=== PATIENT | female | born 1955 | race Caucasian/White ===

== ENCOUNTER 2023-11-04 07:29 | Inpatient (IN) | payer MEDICARE, OTHER ==
[~2023-11-04] VITALS: Ht 162.6 cm; Wt 77.1 kg
[2023-11-04] MEDS ORDERED: FENTANYL PF 100MCG/2ML AMPUL ONE (10:58)
[2023-11-04] MEDS ORDERED: KETAMINE HCL (500MG/10ML) 50 MG/ML VIAL ONE (10:59)
[2023-11-04] MEDS ORDERED: FAMOTIDINE/PF INJ 20 MG/2 ML VIAL IV ONE (10:59)
[2023-11-04] MEDS ORDERED: OXYMETAZOLINE HCL NASAL SPRAY 30 ML BOTTLE NS ONE (11:02)
[2023-11-04] MEDS ORDERED: LIDOCAINE 2%-EPI 1:100,000 30 ML VIAL ONE (11:03)
[2023-11-04] MEDS ORDERED: dexaMETHasone SOD PHOSPHATE 2 ML ONE (11:03)
[2023-11-04] MEDS ORDERED: VANCOMYCIN 1 GM VIAL ONE (11:04)
[2023-11-04] MEDS ORDERED: LABETALOL HCL IV 100MG VIAL ONE (11:53)
[2023-11-04] MEDS ORDERED: ONDANSETRON HCL/PF - ER 4 MG/2 ML VIAL IVP PRN (15:30)
[2023-11-04] MEDS ORDERED: ONDANSETRON HCL/PF 4 MG/2 ML VIAL IVP PRN (15:30)
[2023-11-04] MEDS ORDERED: HYDROMORPHONE 1 MG/1 ML DISP.SYRIN IV PRN (15:30)
[2023-11-04] MEDS ORDERED: LOSA100T31 PO (15:56)
[2023-11-04] MEDS ORDERED: AMLO10TA4 PO (15:56)
[2023-11-04] MEDS: IV NS 0.9% 1,000 ML IV PRN (16:59)
[2023-11-04] MEDS: ACETAMINOPHEN 325 MG TABLET PO PRN (17:36)
[2023-11-04] MEDS ORDERED: MAGNESIUM HYDROXIDE 30 ML UDC PO PRN (19:00)
[2023-11-04] MEDS ORDERED: Z GUARD REMEDY 4 OZ OINT TP PRN (19:00)
[2023-11-04 20:00] VITALS: BP 120/74; TEMP 97.5; O2SAT 93
[2023-11-05 02:30] VITALS: O2SAT 99
[2023-11-05 07:26] LABS: HEMATOCRIT 36 % (33-45); HEMOGLOBIN 11.9 g/dL (11.5-14.8); LYMPHOCYTES # (AUTO) 0.9 K/uL (0.8-4.8); LYMPHOCYTES % (AUTO) 7.9 % (20.0-44.0); MEAN CORPUSCULAR HEMOGLOBIN 30 PG (26.0-33.0); MEAN CORPUSCULAR HGB CONC 33 g/dl (31.0-36.0); MEAN CORPUSCULAR VOLUME 90 fL (82-100); MONOCYTES # (AUTO) 0.6 K/uL (0.1-1.30); MONOCYTES % (AUTO) 5.2 % (2.0-12.0); NEUTROPHILS # (AUTO) 9.3 K/uL (1.8-8.9); NEUTROPHILS % (AUTO) 86.9 % (43.0-81.0); PLATELET COUNT (AUTO) 238 K/uL (150-450); RED BLOOD CELL COUNT(AUTO) 3.95 MIL/uL (4.0-5.2); RED CELL DISTRIBUTION WIDTH 13.3 % (11.5-15.0); WHITE BLOOD COUNT (AUTO) 10.8 K/uL (4.3-11.0)
[2023-11-05 07:54] LABS: CALCIUM, SERUM 9.6 mg/dL (8.5-10.1); CREATININE 0.5 mg/dL (0.6-1.3); MAGNESIUM 2.2 mg/dL (1.8-2.4); PHOSPHORUS 3.4 mg/dL (2.5-4.9); POTASSIUM 3.7 mmol/L (3.5-5.1)
[2023-11-05 08:00] VITALS: BP 120/75; TEMP 99.5; O2SAT 95
[2023-11-05 08:07] VITALS: O2SAT 98
[2023-11-05] MEDS: AMLODIPINE BESYLATE 10 MG TABLET PO SCH (08:34)
[2023-11-05 08:36] VITALS: BP 120/75
[2023-11-05] MEDS: LOSARTAN POTASSIUM 50 MG TABLET PO SCH (08:36)
== END 2023-11-05 16:15 | disposition home or self-care (01) | DRG 516 ==
LOC: DS 07:29 → MED 14:53
PROVIDERS: ADMIT Nurse Practitioner Family; ATTEND Nurse Practitioner Family
PROC: 0NPW0JZ Removal of Synthetic Substitute from Facial Bone, Open Approach (ICD-10-PCS; principal; 2023-11-04)
PROC: 0NBT0ZZ Excision of Right Mandible, Open Approach (ICD-10-PCS; 2023-11-04)
PROC: 0NST0ZZ Reposition Right Mandible, Open Approach (ICD-10-PCS; 2023-11-04)
PROC: 0NUT07Z Supplement Right Mandible with Autologous Tissue Substitute, Open Approach (ICD-10-PCS; 2023-11-04)
PROC: 0NUT0JZ Supplement Right Mandible with Synthetic Substitute, Open Approach (ICD-10-PCS; 2023-11-04)
DX: T84.7XXA Infection and inflammatory reaction due to other internal orthopedic prosthetic devices, implants and grafts, initial encounter (principal); S02.609B Fracture of mandible, unspecified, initial encounter for open fracture; M27.2 Inflammatory conditions of jaws; Y83.8 Other surgical procedures as the cause of abnormal reaction of the patient, or of later complication, without mention of misadventure at the time of the procedure; Y92.009 Unspecified place in unspecified non-institutional (private) residence as the place of occurrence of the external cause; I10 Essential (primary) hypertension; D16.5 Benign neoplasm of lower jaw bone; Z79.899 Other long term (current) drug therapy; X58.XXXA Exposure to other specified factors, initial encounter; Y92.9 Unspecified place or not applicable
CPT/HCPCS: 36415; 71045-TC; 80048-TC; 83735-TC; 84100-TC; 85025-TC; 88305-TC; 88311-TC; 94799-TC; C1713; G0378; J1100; J2405; J2704; J2765; J3010; J3370; J3490; J7030; J7040

== ENCOUNTER 2024-04-12 09:25 | Inpatient (IN) | payer MEDICARE, OTHER ==
[~2024-04-12] VITALS: Ht 162.6 cm; Wt 77.1 kg
[~2024-04-12 09:25] MED LIST: AMLO10TA4 PO; LOSA100T31 PO
--- NOTE | 2024-04-12 09:30 | NUR ---
BACK STAYER NOTES: RECEIVED PT AWAKE, WALKED TO ROOM WITH STEADY GAIT. PT IS A/OX4, ARMENIA/AZERBAIJANI SPK, SON AT BEDSIDE. VITALS TAKEN, WNL, STABLE ON RA, RECORDED. SKIN IS INTACT. PLACED IV ACCESS AT L FA#20, PATENT, INTACT, SL. SURGICAL CHECKLIST DONE, CONSENTS PREPARED. ORIENTED TO UNIT AND STAFF, ADVISED TO USE CALL LIGHT FOR HELP, VERBALIZED UNDERSTANDING. ALL SAFETY MEASURES IN PLACE, CALL LIGHT AND TABLE WITHIN EASY REACH CARE ONGOING.
[2024-04-12] MEDS ORDERED: CLON0.1T PO (10:33)
[2024-04-12] MEDS ORDERED: ROSU10TA2 PO (10:33)
--- NOTE | 2024-04-12 12:00 | NUR ---
RN NOTES: PT LEFT UNIT VIA GURNEY TO OR.
[2024-04-12] MEDS ORDERED: SCOPOLAMINE PATCH 1 MG/72HR TD ONE (12:34)
[2024-04-12] MEDS ORDERED: FENTANYL PF 100MCG/2ML AMPUL ONE (12:35)
[2024-04-12] MEDS ORDERED: VANCOMYCIN 1 GM VIAL ONE (12:38)
[2024-04-12] MEDS ORDERED: LIDOCAINE 2%-EPI 1:200,000 20 ML VIAL IJ ONE (12:38)
[2024-04-12] MEDS ORDERED: dexaMETHasone SOD PHOSPHATE 0 ML ONE (12:38)
[2024-04-12] MEDS ORDERED: CELLULOSE,OXIDIZED 1 PKT EACH MC ONE (13:15)
[2024-04-12] MEDS ORDERED: ESMOLOL INJ 100 MG/10 ML VIAL IV ONE (13:37)
[2024-04-12] MEDS ORDERED: ACETAMINOPHEN 325 MG TABLET PO PRN (14:30)
[2024-04-12] MEDS ORDERED: HYDROMORPHONE 1 MG/1 ML DISP.SYRIN IV PRN (14:30)
[2024-04-12] MEDS ORDERED: IV NS 0.9% 1,000 ML IV PRN (14:30)
[2024-04-12] MEDS ORDERED: ONDANSETRON HCL/PF 4 MG/2 ML VIAL IV PRN (14:30)
--- NOTE | 2024-04-12 14:53 | NUR ---
RN NOTES: PT STILL IN OR, WILL ENDORSE FOR KT.
--- NOTE | 2024-04-12 15:10 | NUR ---
HRIS DEVELOPER NOTES FROM OR RECEIVED PATIENT VIA BED, AWAKE. A/O X4. MAURITIAN/HUNGARIAN SPEAKING BUT CAN UNDERSTAND AND SPEAK BASIC Y[place]UBA. PATIENT IS S/P ORAL SURGERY UNDER DR. THORPE. PATIENT HAS NO SIGNS OF ACUTE DISTRESS NOTED. ON O2 INHALATION AT 2LPM TOLERATING WELL. NO SOB, BREATHING EVEN AND UNLABORED. WITH IV ACCESS ON LEFT FOREARM #20G INFUSING WELL WITH NS AT 30ML/HOUR-INTACT AND PATENT. PATIENT HAS ICE COMPRESS ON HER NECK BECAUSE OF SURGERY. PATIENT DENIES ANY PAIN AND DISCOMFORT AT THIS TIME. RECEIVED BEDSIDE REPORT FROM SEVERINO SHERWOOD WITH ORDERS FROM DR THORPE CARRIED OUT. V/S TAKEN AND WNL. PATIENT EXPRESSES HER DESIRE TO GO HOME. EXPLAINED TO PATIENT THAT SHE NEEDS TO BE SEEN BY DR. LUONG FOR DISCHARGE CLEARANCE. SAFETY MEASURES IN PLACE. BED IN LOW AND LOCKED POSITION. CALL LIGHT AND TABLE WITHIN REACH. WILL CONTINUE WITH PLAN OF CARE.
--- NOTE | 2024-04-12 15:38 | NUR ---
RN NOTES PATIENT REFUSED NORMAL SALINE IVF. EXPLAINED RISKS OF NOT HAVING IV FLUIDS BUT PATIENT STILL REFUSING AND STATED THAT SHE WANTS TO GO HOME.
[2024-04-12 16:00] VITALS: BP 102/61; TEMP 98.6; O2SAT 92
--- NOTE | 2024-04-12 18:26 | NUR ---
AMA NOTES PATIENT WANTS TO GO HOME DESPITE EXPLAINING THE RISK OF POST-OP COMPLICATIONS. DR. LUONG TALKED TO SON VIKA BUT PATIENT WAS ALREADY OUTSIDE THE ROOM AND WANTS TO GO HOME. IV ACCESS AND NAME WRISTBAND REMOVED. REMINDED NEYMAR SANDY TO SCHEDULE FOLLOW UP VISIT WITH DR. THORPE. PATIENT SIGNED THE AMA FORM. PATIENT LEFT THE UNIT AT 1825H.
== END 2024-04-12 18:42 | disposition left against medical advice (07) | DRG 908 ==
LOC: DS 09:25 → MED 09:27
PROVIDERS: ADMIT Student in an Organized Health Care Education/Training Program; ATTEND Student in an Organized Health Care Education/Training Program
PROC: 0NPW07Z Removal of Autologous Tissue Substitute from Facial Bone, Open Approach (ICD-10-PCS; principal; 2024-04-12)
PROC: 0NST04Z Reposition Right Mandible with Internal Fixation Device, Open Approach (ICD-10-PCS; 2024-04-12)
PROC: 0NBT0ZZ Excision of Right Mandible, Open Approach (ICD-10-PCS; 2024-04-12)
PROC: 0NUT07Z Supplement Right Mandible with Autologous Tissue Substitute, Open Approach (ICD-10-PCS; 2024-04-12)
DX: T86.831 Bone graft failure (principal); S02.69XK Fracture of mandible of other specified site, subsequent encounter for fracture with nonunion; T18.0XXA Foreign body in mouth, initial encounter; M27.2 Inflammatory conditions of jaws; E78.5 Hyperlipidemia, unspecified; I10 Essential (primary) hypertension; X58.XXXD Exposure to other specified factors, subsequent encounter; Y83.2 Surgical operation with anastomosis, bypass or graft as the cause of abnormal reaction of the patient, or of later complication, without mention of misadventure at the time of the procedure; Y92.009 Unspecified place in unspecified non-institutional (private) residence as the place of occurrence of the external cause
CPT/HCPCS: 88305-TC; 88311-TC; 88312-TC; A4223; A4338; C1713; G0378; J1100; J1885; J2405; J2704; J2765; J3010; J3370; J3490; J7030